=== PATIENT | female | born 1950 | race Caucasian/White ===

== ENCOUNTER 2016-07-13 06:45 | Day surgery (SDC) | payer OTHER ==
[2016-07-13 08:21] LABS: HEMOGLOBIN 7.8 g/dL (12.0-16.0); MCH 29.2 PG (27-31); MCHC 31.2 g/dL (33-37); MCV 93.6 FL (81-99); MPV 12.1 FL (7.4-10.4); RBC 2.67 XMIL (4.2-5.4)
[2016-07-13 08:29] LABS: INR 1.09; PROTIME 11.6 Seconds (9.2-11.7); PTT 29.9 Seconds (22.0-36.0)
--- NOTE | 2016-07-13 11:17 | Diag Imaging Result Document ---
PROCEDURE NAME: US ABDOMEN-COMPLETE - 07/13/2016 ABDOMINAL ULTRASOUND: FINDINGS: The pancreatic head and body are normal in appearance. The aorta and inferior vena cava are unremarkable where they are visible. There is very poor hepatic detail but no gross abnormalities are present. The common bile duct is less than 5 mm in diameter. The gallbladder is surgically absent. The kidneys are without evidence of hydronephrosis or mass. The spleen is enlarged measuring over 20 cm. No abnormal fluid collections are present. IMPRESSION: 1. Suboptimal study technically, the possibility of cirrhosis cannot be excluded. 2. Splenomegaly.
--- NOTE | 2016-07-13 11:22 | Diag Imaging Result Document ---
PROCEDURE NAME: US LIVER BIOPSY W S/I - 07/13/2016 ULTRASOUND-GUIDED LIVER BIOPSY: FINDINGS: The risks and benefits of the procedure including the possibility of bleeding, infection, or reaction to lidocaine was discussed with the patient, and she agreed. Following sterile preparation of the skin anteriorly and administration of 1% lidocaine to the skin and deeper soft tissues, the anterior left hepatic lobe was biopsied 3 times with an 18-gauge Temno core biopsy needle through a coaxial needle. There are no immediate complications and the patient tolerated the procedure well. IMPRESSION: Successful ultrasound-guided liver biopsy.
[2016-07-13 12:41] VITALS: BP 162/58
== END 2016-07-13 12:41 | disposition home or self-care (01) ==
LOC: OPS 06:45
PROVIDERS: ATTEND Internal Medicine Gastroenterology
DX: K74.69 Other cirrhosis of liver (principal); K76.0 Fatty (change of) liver, not elsewhere classified; Z79.899 Other long term (current) drug therapy; Z79.4 Long term (current) use of insulin; Z79.82 Long term (current) use of aspirin
CPT/HCPCS: 47000; 76700; 76942; 85027; 85610; 85730; 88307; 88313